=== PATIENT | male | born 1985 ===

== ENCOUNTER 2018-12-16 09:34 | Emergency (ER) | payer OTHER ==
[2018-12-16 09:40] VITALS: PULSE 73; RESP 16; TEMP 98.7; O2SAT 99
[2018-12-16 09:41] VITALS: BP 158/105
[2018-12-16] MEDS ORDERED: Dexamethasone 4 mg/1 ml IM STA (10:21)
--- NOTE | 2018-12-16 10:25 | C.PDOC ---
History Of Present Illness 33 y/o male presents to the ED for evaluation of facial redness that began 2 days ago. 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 Since then he developed facial itching and redness. Otherwise patient denies any eye pain or itching. Denies any SOB, lip/tongue swelling, sensation of throat closing, or other associated symptoms. Time Seen by Provider: 12/16/18 09:47 Chief Complaint (Nursing): Allergic Reaction History Per: Patient History/Exam Limitations: no limitations Onset/Duration Of Symptoms: Days Current Symptoms Are (Timing): Still Present Location Of Injury: Right: Face, Left: Face Past Medical History Reviewed: Historical Data, Nursing Documentation, Vital Signs Vital Signs: Last Vital Signs Temp 98.7 F 12/16/18 09:36 Pulse 73 12/16/18 09:36 Resp 16 12/16/18 09:36 BP 158/105 H 12/16/18 09:36 Pulse Ox 99 12/16/18 09:36 - Medical History PMH: No Chronic Diseases Surgical History: No Surg Hx Family History: States: No Known Family Hx - Social History Hx Alcohol Use: Yes Hx Substance Use: No - Immunization History Hx Tetanus Toxoid Vaccination: No Hx Influenza Vaccination: No Hx Pneumococcal Vaccination: No Review Of Systems Constitutional: Negative for: Fever Eyes: Negative for: Pain, Vision Change, Eyelid Inflammation ENT: Negative for: Mouth Swelling, Throat Swelling Respiratory: Negative for: Cough, Shortness of Breath Gastrointestinal: Negative for: Nausea, Vomiting Skin: Positive for: Other (Facial redness/itchiness) Neurological: Negative for: Weakness, Headache Physical Exam - Physical Exam Appears: Well, Non-toxic, No Acute Distress Skin: Warm, Dry, Other (bilateral cheeks and chin appear erythematous, with blanching, no vesicular lesions) Head: Atraumatic, Normacephalic Eye(s): bilateral: Normal Inspection, PERRL, EOMI Oral Mucosa: Moist Throat: Normal (airway is patent), No Erythema, No Drooling Neck: Normal ROM, Supple Chest: Symmetrical Cardiovascular: Rhythm Regular, No Murmur Respiratory: Normal Breath Sounds, No Accessory Muscle Use, No Stridor, No Wheezing, Other (Speaking in full sentences) Extremity: Bilateral: Atraumatic, Normal Color And Temperature Neurological/Psych: Oriented x3, Normal Speech ED Course And Treatment O2 Sat by Pulse Oximetry: 99 (RA) Pulse Ox Interpretation: Normal Progress Note: Patient is requesting an injection. Administered 10 mg IM decadron and 10 mg PO Claritin in the ED. On re-evaluation patient is resting comfortably, in no acute distress. Patient is stable for discharge home. Given rx for Claritin and hydrocortisone cream to go home with. Disposition Counseled Patient/Family Regarding: Diagnosis, Need For Followup, Rx Given - Disposition Referrals: [facility] [Outside] Disposition: HOME/ ROUTINE Disposition Time: 10:35 Condition: STABLE Additional Instructions: FOLLOW UP WITH MEDICAL CLINIC IN 1-2 DAYS USE MEDICATIONS DIRECTED RETURN TO EMERGENCY ROOM IF YOUR SYMPTOMS BECOME WORSE SEGUIR CON LA CLNICA MDICA EN 1-2 MALDONADO UTILICE MEDICAMENTOS MIKE SE DIRIGE VUELVA A LA ELVIA DE EMERGENCIA SI SHANNON SNTOMAS SE HACEN PEOR Prescriptions: Hydrocortisone 0.5% CREAM [Cortizone 0.5% CREAM] 1 applic EXT BID #1 tube Loratadine [Claritin] 10 mg PO DAILY PRN #30 tab PRN Reason: Itching / Pruritus Instructions: Contact Dermatitis (DC) Forms: [employer] (Serbian) Print Language: HEBREW - Clinical Impression Clinical Impression: Contact dermatitis - Scribe Statement The provider has reviewed the documentation as recorded by the Jongibra Brown Provider Attestation: All medical record entries made by the Jongibe were at my direction and personally dictated by me. I have reviewed the chart and agree that the record accurately reflects my personal performance of the history, physical exam, medical decision making, and the department course for this patient. I have also personally directed, reviewed, and agree with the discharge instructions and disposition.
== END 2018-12-16 11:45 | disposition home or self-care (01) ==
LOC: C.ER 09:34
DX: L25.9 Unspecified contact dermatitis, unspecified cause (principal)
CPT/HCPCS: 96372; 99283; J1100